=== PATIENT | male | born 1935 | race African-American/Black ===

== ENCOUNTER 2019-05-09 18:29 | Emergency (ER) | payer OTHER ==
[~2019-05-09] VITALS: Ht 177.8 cm; Wt 87.0 kg
[2019-05-09 20:00] VITALS: BP 119/68
== END 2019-05-09 20:21 | disposition left against medical advice (07) ==
LOC: ER 18:29 → CANBEDREQ 23:06
DX: R55 Syncope and collapse (principal); Z71.89 Other specified counseling; I10 Essential (primary) hypertension; E78.00 Pure hypercholesterolemia, unspecified
CPT/HCPCS: 99283

== ENCOUNTER 2022-06-26 14:22 | Emergency (ER) | payer OTHER ==
[~2022-06-26] VITALS: Ht 177.8 cm; Wt 99.9 kg
[2022-06-26 15:34] LABS: BASOPHILS % 0.5 % (0.0-2.0); EOSINOPHILS % 0.7 % (0.0-5.0); HEMATOCRIT. 45.3 % (42.0-52.0); HEMOGLOBIN. 15.2 g/dL (14.0-18.0); LYMPHOCYTES % 23.2 % (20.0-50.0); MEAN CORPUSCULAR HEMOGLOBIN 34.4 pg (28.0-32.0); MEAN CORPUSCULAR VOLUME 102.7 fL (80.0-94.0); MEAN PLATELET VOLUME 10.6 fl (7.4-10.4); MONOCYTES % 7.8 % (2.0-8.0); NEUTROPHILS % 67.8 % (40.0-76.0); PLATELET 148 x1000/uL (130-400); RED BLOOD CELL COUNT 4.42 mill/uL (4.7-6.1); RED CELL DISTRIBUTION WIDTH 15.2 % (11.6-14.6)
[2022-06-26 15:42] LABS: CHLORIDE 105 mEq/L (98-107)
[2022-06-26 15:58] LABS: ETHANOL BLOOD < 10 mg/dL
[2022-06-26 16:23] LABS: CLARITY URINE CLEAR (CLEAR); COLOR URINE YELLOW (YELLOW); KETONES URINE NEGATIVE (NEGATIVE); LEUKOCYTE ESTERASE URINE NEGATIVE (NEGATIVE); NITRITE URINE NEGATIVE (NEGATIVE); OCCULT BLOOD URINE NEGATIVE (NEGATIVE); PH URINE 6.5 (4.5-8.0); PROTEIN URINE TRACE (NEGATIVE); SPECIFIC GRAVITY URINE 1.019 (1.005-1.030); UROBILINOGEN URINE 0.2 E.U./dL (0.2-1.0)
[2022-06-26 16:35] LABS: *AMPHETAMINES SCREEN URINE NEGATIVE (NEGATIVE); *BARBITURATES SCREEN URINE NEGATIVE (NEGATIVE); *BENZODIAZEPINES SCREEN URINE NEGATIVE (NEGATIVE); *COCAINE SCREEN URINE NEGATIVE (NEGATIVE); CANNABINOID URINE SCREEN NEGATIVE (NEGATIVE); METHADONE URINE SCREEN NEGATIVE (NEGATIVE); OPIATES URINE SCREEN NEGATIVE (NEGATIVE); PHENCYCLIDINE URINE SCREEN NEGATIVE (NEGATIVE)
[2022-06-26] MEDS ORDERED: AMLODIPINE 5MG TABLET PO ONE (17:00)
[2022-06-26 20:51] VITALS: BP 196/98
[2022-06-26] MEDS ORDERED: HYDRALAZINE 20MG/ML VIAL IV ONE (21:00)
== END 2022-06-26 22:59 | disposition short-term general hospital (02) ==
LOC: ER 14:22 → CANBEDREQ 16:11 → ER 22:59
DX: R41.82 Altered mental status, unspecified (principal); F03.90 Unspecified dementia, unspecified severity, without behavioral disturbance, psychotic disturbance, mood disturbance, and anxiety; E78.00 Pure hypercholesterolemia, unspecified; I10 Essential (primary) hypertension; Z20.822 Contact with and (suspected) exposure to COVID-19
CPT/HCPCS: 36415; 70450; 70496; 70498; 71045; 80053; 80305; 80320; 81003; 83880; 84484; 85025; 87426; 93005; 96374; 99291; C9803; J0360; G0480

== ENCOUNTER 2023-02-27 14:48 | Emergency (ER) | payer OTHER, MEDICAID ==
[~2023-02-27] VITALS: Ht 177.8 cm; Wt 87.0 kg
[~2023-02-27 14:48] MED LIST: ALLO100T MT; AMLO5TAB88 PO; AMOX1TAB16 PO; BACL-141 PO; BICA50TA48 PO; CLOP-31 PO; DONE5TAB7 MT; HYDR-459 MT; LIP40 PO; NYST15PO4 TP
[2023-02-27 14:55] VITALS: O2SAT 100
[2023-02-27 18:46] VITALS: BP 134/80; PULSE 86; RESP 16; TEMP 98.5
== END 2023-02-27 18:48 | disposition home or self-care (01) ==
LOC: ER 14:48
DX: L89.313 Pressure ulcer of right buttock, stage 3 (principal); E78.00 Pure hypercholesterolemia, unspecified; I10 Essential (primary) hypertension; F03.90 Unspecified dementia, unspecified severity, without behavioral disturbance, psychotic disturbance, mood disturbance, and anxiety; Z85.46 Personal history of malignant neoplasm of prostate
CPT/HCPCS: 99281